=== PATIENT | male | born 1955 | race Caucasian/White ===

== ENCOUNTER 2017-07-18 07:11 | Day surgery (SDC) | payer BC ==
[~2017-07-18] VITALS: Ht 185.4 cm; Wt 90.5 kg
[2017-07-18] MEDS ORDERED: FINA5TAB4 PO (08:00)
[2017-07-18] MEDS ORDERED: PREG100C PO (08:00)
[2017-07-18] MEDS ORDERED: BACL20TA PO (08:00)
[2017-07-18] MEDS ORDERED: OXYC1TAB7 PO (08:00)
[2017-07-18] MEDS ORDERED: TAPE100T8 PO (08:00)
[2017-07-18] MEDS ORDERED: TAMS-11 PO (08:00)
[2017-07-18] MEDS ORDERED: SODIUM CHLORIDE 0.9% 1,000 ML IV SCH (08:01)
[2017-07-18 08:02] VITALS: BP 127/78
[2017-07-18] MEDS ORDERED: PLEASE ENTER HEIGHT AND WEIGHT MC SCH (08:30)
[2017-07-18] MEDS ORDERED: LIDOCAINE 1%, 20ML ONE (08:54)
[2017-07-18] MEDS ORDERED: OMNIPAQUE 180 MG/ML, 20ML VIAL ONE (10:30)
== END 2017-07-18 12:35 ==
LOC: OUT 07:11 → EDSTATUS 08:30 → OUT 12:35
PROVIDERS: ATTEND Physician Assistant Surgical
DX: M54.5 Low back pain (principal); Z88.6 Allergy status to analgesic agent; Z98.890 Other specified postprocedural states
CPT/HCPCS: 62284; 72132; 72265; J7030; Q9965; J3490

== ENCOUNTER 2017-12-26 08:19 | Day surgery (SDC) | payer BC ==
[~2017-12-26] VITALS: Ht 185.4 cm; Wt 91.9 kg
[~2017-12-26 08:19] MED LIST: BACL20TA PO; FINA5TAB4 PO; OXYC1TAB7 PO; PREG100C PO; TAMS-11 PO; TAPE100T8 PO
[2017-12-26 09:12] VITALS: BP 139/82
[2017-12-26] MEDS ORDERED: SODIUM CHLORIDE 0.9% 1,000 ML IV SCH (09:15)
[2017-12-26] MEDS ORDERED: OMNIPAQUE 300 MG/ML, 10ML VIAL ONE (10:32)
== END 2017-12-26 13:55 ==
LOC: OUT 08:19
PROVIDERS: ATTEND Neurological Surgery
DX: M54.2 Cervicalgia (principal); M48.02 Spinal stenosis, cervical region
CPT/HCPCS: 62284; 72050; 72126; J7030; Q9967

== ENCOUNTER 2018-09-04 07:11 | Day surgery (SDC) | payer BC ==
[~2018-09-04] VITALS: Ht 185.4 cm; Wt 94.9 kg
[2018-09-04] MEDS ORDERED: SODIUM CHLORIDE 0.9% 1,000 ML IV SCH (07:41)
[2018-09-04 08:00] VITALS: BP 136/82
== END 2018-09-04 13:50 | disposition home or self-care (01) ==
LOC: OUT 07:11
PROVIDERS: ATTEND Neurological Surgery
DX: M51.36 Other intervertebral disc degeneration, lumbar region (principal); Z98.890 Other specified postprocedural states; Z72.89 Other problems related to lifestyle; Z88.6 Allergy status to analgesic agent
CPT/HCPCS: 62284; 72132; J7030; Q9965

== ENCOUNTER → 2018-09-11 | Outpatient (CLI) | payer BC | END | disposition home or self-care (01) | LOC: CFH 13:12 | PROVIDERS: ATTEND Neurological Surgery | DX: M43.17 Spondylolisthesis, lumbosacral region (principal); S33.39XA Dislocation of other parts of lumbar spine and pelvis, initial encounter; X58.XXXA Exposure to other specified factors, initial encounter; Y93.89 Activity, other specified; Y92.89 Other specified places as the place of occurrence of the external cause; Y99.8 Other external cause status | CPT/HCPCS: 72100 ==

== ENCOUNTER → 2018-10-15 | Outpatient (CLI) | payer BC | END | disposition home or self-care (01) | LOC: RAD 14:13 | PROVIDERS: ATTEND Neurological Surgery | DX: M41.9 Scoliosis, unspecified (principal); G89.29 Other chronic pain | CPT/HCPCS: 72082 ==

== ENCOUNTER → 2019-01-29 | Outpatient (CLI) | payer BC | END | disposition home or self-care (01) | LOC: CFH 07:23 | PROVIDERS: ATTEND Neurological Surgery | DX: M43.5X7 Other recurrent vertebral dislocation, lumbosacral region (principal); M48.07 Spinal stenosis, lumbosacral region; Z94.6 Bone transplant status | CPT/HCPCS: 72100 ==

== ENCOUNTER → 2019-03-26 | Outpatient (CLI) | payer BC | END | disposition home or self-care (01) | LOC: CFH 14:13 | PROVIDERS: ATTEND Family Medicine | DX: M51.36 Other intervertebral disc degeneration, lumbar region (principal); M48.061 Spinal stenosis, lumbar region without neurogenic claudication; M46.1 Sacroiliitis, not elsewhere classified; Z88.8 Allergy status to other drugs, medicaments and biological substances | CPT/HCPCS: 72114 ==

== ENCOUNTER 2019-07-08 11:04 | Outpatient (CLI) | payer BC | END 2019-07-08 23:59 | disposition home or self-care (01) | LOC: CFH 11:04 | PROVIDERS: ATTEND Neurological Surgery | DX: M43.5X7 Other recurrent vertebral dislocation, lumbosacral region (principal); M48.07 Spinal stenosis, lumbosacral region; M51.36 Other intervertebral disc degeneration, lumbar region; M46.1 Sacroiliitis, not elsewhere classified; Z98.1 Arthrodesis status | CPT/HCPCS: 72110 ==

== ENCOUNTER 2019-12-07 05:11 | Day surgery (SDC) | payer BC, MEDICARE ==
[~2019-12-07] VITALS: Ht 185.4 cm; Wt 94.7 kg
[~2019-12-07 05:11] MED LIST changes: +ASCO10004 PO; +CALCIUM PO; +ESOM20CA PO; +MAGNESIUM PO; +OXYB10TA2 PO; +PREG150C PO; +ROPI1TAB2 PO; +VITA1CAP PO
[2019-12-07] MEDS ORDERED: BACL-19 PO (06:05)
[2019-12-07] MEDS ORDERED: OXYC-296 PO (06:06)
[2019-12-07] MEDS ORDERED: FINA5TAB4 PO (06:08)
[2019-12-07] MEDS ORDERED: SODIUM CHLORIDE 0.9% 1,000 ML IV SCH (06:11)
[2019-12-07 06:12] VITALS: BP 128/72
[2019-12-07] MEDS ORDERED: LIDOCAINE-MPF 1%, 5ML ONE (07:03)
[2019-12-07] MEDS ORDERED: OMNIPAQUE 180 MG/ML, 20ML VIAL ONE (07:14)
== END 2019-12-07 11:00 | disposition home or self-care (01) ==
LOC: OUT 05:11
PROVIDERS: ATTEND Neurological Surgery
DX: M48.061 Spinal stenosis, lumbar region without neurogenic claudication (principal); M51.36 Other intervertebral disc degeneration, lumbar region; M53.3 Sacrococcygeal disorders, not elsewhere classified; M46.1 Sacroiliitis, not elsewhere classified; Z79.891 Long term (current) use of opiate analgesic; Z79.899 Other long term (current) drug therapy; Z88.5 Allergy status to narcotic agent; Z98.1 Arthrodesis status
CPT/HCPCS: 62284; 72132; J7030; Q9965

== ENCOUNTER → 2020-01-21 | Outpatient (CLI) | payer BC, MEDICARE ==
[~2020-01-21] MED LIST changes: +BACL-19 PO; -OXYB10TA2 PO; +OXYB10TA26 PO; +OXYC-296 PO; -ROPI1TAB2 PO; +ROPI1TAB4 PO
== END | disposition home or self-care (01) ==
LOC: CFH 10:07
PROVIDERS: ATTEND Neurological Surgery
DX: M16.0 Bilateral primary osteoarthritis of hip (principal); M43.28 Fusion of spine, sacral and sacrococcygeal region; M43.26 Fusion of spine, lumbar region
CPT/HCPCS: 73523

== ENCOUNTER → 2020-04-06 | Outpatient (CLI) | payer BC, MEDICARE | END | disposition home or self-care (01) | LOC: RAD 08:13 | PROVIDERS: ATTEND Physician Assistant | DX: M51.35 Other intervertebral disc degeneration, thoracolumbar region (principal); M48.061 Spinal stenosis, lumbar region without neurogenic claudication; M50.00 Cervical disc disorder with myelopathy, unspecified cervical region; M16.0 Bilateral primary osteoarthritis of hip; Z98.890 Other specified postprocedural states; M85.88 Other specified disorders of bone density and structure, other site | CPT/HCPCS: 72082; 72110 ==

== ENCOUNTER → 2020-06-06 | Outpatient (CLI) | payer BC | END | disposition home or self-care (01) | LOC: CFH 10:24 | PROVIDERS: ATTEND Physician Assistant | DX: M51.36 Other intervertebral disc degeneration, lumbar region (principal); M46.1 Sacroiliitis, not elsewhere classified; M48.061 Spinal stenosis, lumbar region without neurogenic claudication | CPT/HCPCS: 72110 ==

== ENCOUNTER 2020-06-28 06:12 | Day surgery (SDC) | payer BC ==
[~2020-06-28] VITALS: Ht 185.4 cm; Wt 93.4 kg
[2020-06-28 07:25] VITALS: BP 135/73
[2020-06-28] MEDS ORDERED: SODIUM CHLORIDE 0.9% 1,000 ML IV SCH (07:30)
[2020-06-28] MEDS ORDERED: LIDOCAINE-MPF 1%, 5ML ONE (07:53)
[2020-06-28] MEDS ORDERED: OMNIPAQUE 300 MG/ML, 10ML VIAL ONE (11:34)
== END 2020-06-28 12:40 | disposition home or self-care (01) ==
LOC: OUT 06:12
PROVIDERS: ATTEND Physician Assistant
DX: M54.2 Cervicalgia (principal); M54.89 Other dorsalgia; M47.816 Spondylosis without myelopathy or radiculopathy, lumbar region; M47.813 Spondylosis without myelopathy or radiculopathy, cervicothoracic region; M46.1 Sacroiliitis, not elsewhere classified; Z79.899 Other long term (current) drug therapy; Z98.890 Other specified postprocedural states; Z88.5 Allergy status to narcotic agent; Z72.89 Other problems related to lifestyle
CPT/HCPCS: 62284; 72050; 72072; 72126; 72129; 72132; J7030; Q9967

== ENCOUNTER 2020-11-07 14:04 | Outpatient (CLI) | payer BC ==
[~2020-11-07 14:04] MED LIST changes: +ASCO100018 PO; -ASCO10004 PO
== END 2020-11-07 23:59 | disposition home or self-care (01) ==
LOC: LAB 14:04
PROVIDERS: ATTEND Physician Assistant
DX: R97.20 Elevated prostate specific antigen [PSA] (principal)
CPT/HCPCS: 36415; 84153; G0103

== ENCOUNTER → 2020-12-09 | Outpatient (CLI) | payer BC | END | disposition home or self-care (01) | LOC: RAD 11:19 | PROVIDERS: ATTEND Neurological Surgery | DX: S33.39XA Dislocation of other parts of lumbar spine and pelvis, initial encounter (principal); X58.XXXA Exposure to other specified factors, initial encounter; Y93.89 Activity, other specified; Y92.89 Other specified places as the place of occurrence of the external cause; Y99.8 Other external cause status | CPT/HCPCS: 72114 ==

== ENCOUNTER → 2020-12-14 | Outpatient (CLI) | payer BC | END | disposition home or self-care (01) | LOC: RAD 14:34 | PROVIDERS: ATTEND Neurological Surgery | DX: M51.36 Other intervertebral disc degeneration, lumbar region (principal); M41.9 Scoliosis, unspecified | CPT/HCPCS: 72082 ==

== ENCOUNTER 2021-02-08 09:14 | Outpatient (CLI) | payer BC | END 2021-02-08 23:59 | disposition home or self-care (01) | LOC: RAD 09:14 | PROVIDERS: ATTEND Neurological Surgery | DX: S33.39XA Dislocation of other parts of lumbar spine and pelvis, initial encounter (principal); M46.1 Sacroiliitis, not elsewhere classified; X58.XXXA Exposure to other specified factors, initial encounter; Y93.89 Activity, other specified; Y92.89 Other specified places as the place of occurrence of the external cause; Y99.8 Other external cause status | CPT/HCPCS: 72110; 72192 ==

== ENCOUNTER 2021-08-28 11:17 | Day surgery (SDC) | payer MEDICARE, BC ==
[~2021-08-28] VITALS: Ht 185.4 cm; Wt 88.5 kg
[2021-08-28 11:49] VITALS: BP 136/73
[2021-08-28] MEDS ORDERED: BACL-19 PO (12:17)
[2021-08-28] MEDS ORDERED: OMNIPAQUE 180 MG/ML, 10ML VIAL ONE (13:00)
== END 2021-08-28 16:12 | disposition home or self-care (01) ==
LOC: OUT 11:17
PROVIDERS: ATTEND Physician Assistant Surgical
DX: M54.5 Low back pain (principal); M43.17 Spondylolisthesis, lumbosacral region; Z79.891 Long term (current) use of opiate analgesic; Z79.899 Other long term (current) drug therapy; Z88.5 Allergy status to narcotic agent; Z98.1 Arthrodesis status
CPT/HCPCS: 62284; 72132; Q9965